=== PATIENT | female | born 1975 | race Caucasian/White ===

== ENCOUNTER 2017-06-10 12:48 | Emergency (ER) | payer BC, OTHER ==
[~2017-06-10] VITALS: Ht 162.6 cm; Wt 54.0 kg
[2017-06-10] MEDS ORDERED: NS IV 1000 ML 1,000 ML IV ONE (13:10)
[2017-06-10] MEDS ORDERED: KETOROLAC 30 MG/ML VIAL IVP ONE (13:15)
[2017-06-10 13:30] LABS: BASOPHILS % (AUTO) 0 % (0-10); EOSINOPHILS # (AUTO) 0.2 10^3/uL (0.0-0.3); EOSINOPHILS % (AUTO) 2 % (0-10); LYMPHOCYTES # (AUTO) 2.4 X 10^3 (1.0-4.0); LYMPHOCYTES % (AUTO) 26 % (12-44); MEAN CORPUSCULAR HEMOGLOBIN 30 PG (25-34); MEAN CORPUSCULAR HGB CONC 35 G/DL (32-36); MEAN CORPUSCULAR VOLUME 87 FL (80-99); MEAN PLATELET VOLUME 8.7 FL (7.4-10.4); MONOCYTES # (AUTO) 0.8 X 10^3 (0.0-1.0); MONOCYTES % (AUTO) 9 % (0-12); NEUTROPHILS # (AUTO) 5.9 X 10^3 (1.8-7.8); NEUTROPHILS % (AUTO) 63 % (42-75); PLATELET COUNT 239 10^3/uL (130-400); RED BLOOD COUNT 4.84 10^6/uL (4.35-5.85); RED CELL DISTRIBUTION WIDTH 13.2 % (10.0-14.5); WHITE BLOOD COUNT 9.3 10^3/uL (4.3-11.0)
--- NOTE | 2017-06-10 13:44 | ED General ---
General Chief Complaint: General Problems/Pain Stated Complaint: STREP THROAT/CONFUSION Nursing Triage Note: PT SENT TO ED FROM [facility] WITH C/O MIGRAINE, BODY ACHES AND CONFUSION. PT REPORTS SHE WAS DX WITH STREP ON 06/06/17 AND HAS BEEN TAKING AUGMENTIN. Nursing Sepsis Screen: No Definite Risk Source of Information: Patient, Family Exam Limitations: No Limitations History of Present Illness Time Seen by Provider: 12:55 Initial Comments This 41-year-old woman presents to the emergency room with altered mental status and lethargy. She was referred to the emergency room from an urgent care clinic. She reportedly was diagnosed with strep pharyngitis on June 06. She was given an injection and prescribed Augmentin. She has had diarrhea since that time. She is alert and oriented but mentation is sluggish and she appears lethargic. She denies taking any pain medications. She reports intense headache. Vital signs are stable and normal on arrival. Oropharynx appears very dry. Allergies and Home Medications Allergies Coded Allergies: No Known Drug Allergies (Unverified , 06/10/17) Constitutional: see HPI EENTM: see HPI Respiratory: no symptoms reported Cardiovascular: no symptoms reported Gastrointestinal: see HPI Genitourinary: no symptoms reported Musculoskeletal: no symptoms reported Skin: no symptoms reported Psychiatric/Neurological: See HPI Hematologic/Lymphatic: No Symptoms Reported Past [id number]-[id number] Hx Patient Social History Alcohol Use: Denies Use Recreational Drug Use: No Smoking Status: Never a Smoker 2nd Hand Smoke Exposure: No Recent Foreign Travel: No Contact w/Someone Who Travel: No Recent Infectious Disease Expo: No Recent Hopitalizations: No Physical Abuse: No Sexual Abuse: No Seasonal Allergies Seasonal Allergies: No Surgeries History of Surgeries: Yes Surgeries: Appendectomy, Hysterectomy (sparing the ovaries) Respiratory History of Respiratory Disorde: No Cardiovascular History of Cardiac Disorders: No Neurological History of Neurological Disord: No Reproductive System : No [employer] History: Hysterectomy Genitourinary History of Genitourinary Disor: No Gastrointestinal History of Gastrointestinal Di: No Musculoskeletal History of Musculoskeletal Dis: No Endocrine History of Endocrine Disorders: No HEENT History of HEENT Disorders: No Cancer History of Cancer: No Psychosocial History of Psychiatric Problem: Yes Behavioral Health Disorders: Anxiety Suicide Risk Score: 0 Integumentary History of Skin or Integumenta: No Physical Exam Vital Signs Vital Sign - Last 12Hours 06/10/17 13:06 Temp 97.3 Pulse 79 Resp 12 B/P (MAP) 113/83 Pulse Ox 100 O2 Delivery Room Air Capillary Refill : Less Than 3 Seconds General Appearance: No Apparent Distress, WD/WN, Thin HEENT: PERRL/EOMI, TMs Normal, Normal ENT Inspection, Other (oropharynx very dry. 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, Other (mood depressed, mentation sluggish but alert and oriented.) Skin: Normal Color, Warm/Dry Progress/Results/Core Measures Suspected Sepsis Recent Fever Within 48 Hours: No Infection Criteria Present: None New/Unexplained Altered Menta: No Sepsis Screen: No Definite Risk Sepsis Diagnosis: SIRS Temperature:97.3 Pulse: 79 Respiratory Rate: 12 Laboratory Tests 06/10/17 13:20: White Blood Count 9.3 Blood Pressure 113 /83 Mean: 93 Laboratory Tests 06/10/17 13:20: Creatinine 0.79, Platelet Count 239, Total Bilirubin 0.3 Results/Orders Lab Results Laboratory Tests Test 06/10/17 13:15 06/10/17 13:20 Range/Units Group A Streptococcus Screen NEGATIVE NEGATIVE White Blood Count 9.3 4.3-11.0 10^3/uL Red Blood Count 4.84 4.35-5.85 10^6/uL Hemoglobin 14.6 11.5-16.0 G/DL Hematocrit 42 35-52 % Mean Corpuscular Volume 87 80-99 FL Mean Corpuscular Hemoglobin 30 25-34 PG Mean Corpuscular Hemoglobin Concent 35 32-36 G/DL Red Cell Distribution Width 13.2 10.0-14.5 % Platelet Count 239 130-400 10^3/uL Mean Platelet Volume 8.7 7.4-10.4 FL Neutrophils (%) (Auto) 63 42-75 % Lymphocytes (%) (Auto) 26 12-44 % Monocytes (%) (Auto) 9 0-12 % Eosinophils (%) (Auto) 2 0-10 % Basophils (%) (Auto) 0 0-10 % Neutrophils # (Auto) 5.9 1.8-7.8 X 10^3 Lymphocytes # (Auto) 2.4 1.0-4.0 X 10^3 Monocytes # (Auto) 0.8 0.0-1.0 X 10^3 Eosinophils # (Auto) 0.2 0.0-0.3 10^3/uL Basophils # (Auto) 0.0 0.0-0.1 10^3/uL Sodium Level 141 135-145 MMOL/L Potassium Level 3.7 3.6-5.0 MMOL/L Chloride Level 113 H 98-107 MMOL/L Carbon Dioxide Level 19 L 21-32 MMOL/L Anion Gap 9 5-14 MMOL/L Blood Urea Nitrogen 7 7-18 MG/DL Creatinine 0.79 0.60-1.30 MG/DL Estimat Glomerular Filtration Rate > 60 BUN/Creatinine Ratio 9 Glucose Level 71 70-105 MG/DL Calcium Level 8.8 8.5-10.1 MG/DL Magnesium Level 2.0 1.8-2.4 MG/DL Total Bilirubin 0.3 0.1-1.0 MG/DL Aspartate Amino Transf (AST/SGOT) 29 5-34 U/L Alanine Aminotransferase (ALT/SGPT) 56 H 0-55 U/L Alkaline Phosphatase 69 40-136 U/L C-Reactive Protein High Sensitivity 0.09 0.00-0.50 MG/DL Total Protein 6.5 6.4-8.2 GM/DL Albumin 3.9 3.2-4.5 GM/DL My Orders Orders - LINDA RESENDIZ MD Cbc With Automated Diff (06/10/17 13:10) Comprehensive Metabolic Panel (06/10/17 13:10) Hs C Reactive Protein (06/10/17 13:10) Magnesium (06/10/17 13:10) Rapid Strep A Screen (06/10/17 13:10) Ua Culture If Indicated (06/10/17 13:10) Saline Lock/Iv-Start (06/10/17 13:10) Ketorolac Injection (Toradol Injection) (06/10/17 13:15) Ns Iv 1000 Ml (Sodium Chloride 0.9%) (06/10/17 13:10) Medications Given in ED Current Medications Medications Dose Ordered Sig/Nicolette Route Start Time Stop Time Status Last Admin Dose Admin Ketorolac Tromethamine 30 mg ONCE ONCE IVP 06/10/17 13:15 06/10/17 13:16 DC 06/10/17 13:20 30 MG Sodium Chloride 1,000 ml @ 0 mls/hr Q0M ONCE IV 06/10/17 13:10 06/10/17 13:11 DC 06/10/17 13:20 0 MLS/HR Vital Signs/I&O Vital Sign - Last 12Hours 06/10/17 13:06 Temp 97.3 Pulse 79 Resp 12 B/P (MAP) 113/83 Pulse Ox 100 O2 Delivery Room Air Capillary Refill : Less Than 3 Seconds Blood Pressure Mean: 93 Progress Note : Time: 14:10 Progress Note Patient feels much better after receiving IV fluids and Toradol. Headache is pretty well gone and she is much more alert and talkative. She feels ready to return home. I advised changing from Augmentin to plain amoxicillin and taking a probiotic. Levsin will be prescribed for any further diarrhea or abdominal cramping. Departure Impression Impression: Primary Impression: Acute headache Qualified Codes: R51 - Headache Additional Impressions: Hypovolemia Altered mental status Qualified Codes: R41.82 - Altered mental status, unspecified Pharyngitis Qualified Codes: J02.9 - Acute pharyngitis, unspecified Disposition: 01 HOME, SELF-CARE Condition: Improved Departure-Patient Inst. Referrals: NO,LOCAL PHYSICIAN (PCP/Family) Primary Care Physician Patient Instructions: Headache, Adult Add. Discharge Instructions: Drink plenty of clear liquids. Change from Augmentin to amoxicillin as prescribed. Use Levsin (hyoscyamine) dissolved under the tongue every 4 hours as needed for abdominal cramping and diarrhea. Gradually advance your diet with small quantities of bland food as tolerated. Return to the emergency room if symptoms worsen. Take probiotics such as Culturelle 3 times daily with meals until diarrhea resolves. For headache you may take ibuprofen up to 400 mg every 6 hours as needed. Add Tylenol (acetaminophen) up to 650 mg every 6 hours as needed for additional pain relief. All discharge instructions reviewed with patient and/or family. Voiced understanding. Scripts Amoxicillin (Amoxicillin) 500 Mg Capsule 1000 MG PO BID, #20 CAP Prov: BRUEGGEMANN,LINDA T MD 06/10/17 Hyoscyamine Sulfate (Levsin-Sl) 0.125 Mg Tab.subl 0.125 MG SL Q4H, #10 TAB Prov: LINDA RESENDIZ MD 06/10/17 LINDA RESENDIZ MD Jun 10, 2017 13:44
[2017-06-10 13:49] LABS: ALANINE AMINOTRANSFERASE 56 U/L (0-55); ALBUMIN 3.9 GM/DL (3.2-4.5); ANION GAP 9 MMOL/L (5-14); ASPARTATE AMINO TRANSFERASE 29 U/L (5-34); BILIRUBIN,TOTAL 0.3 MG/DL (0.1-1.0); BLOOD UREA NITROGEN 7 MG/DL (7-18); BUN/CREATININE RATIO 9; CALCIUM 8.8 MG/DL (8.5-10.1); CARBON DIOXIDE 19 MMOL/L (21-32); CHLORIDE 113 MMOL/L (98-107); CREATININE SERUM 0.79 MG/DL (0.60-1.30); GFR ESTIMATED > 60; GLUCOSE 71 MG/DL (70-105); POTASSIUM 3.7 MMOL/L (3.6-5.0); SODIUM 141 MMOL/L (135-145); TOTAL PROTEIN 6.5 GM/DL (6.4-8.2); hs C REACTIVE PROTEIN 0.09 MG/DL (0.00-0.50)
[2017-06-10] MEDS ORDERED: AMOX500C2 PO (14:17)
[2017-06-10] MEDS ORDERED: HYOS0.1283 SL (14:17)
[2017-06-10 14:25] VITALS: BP 113/83
== END 2017-06-10 14:25 | disposition home or self-care (01) ==
LOC: EDUNIT# 12:48 → ER 12:52
DX: R53.83 Other fatigue (principal); J02.0 Streptococcal pharyngitis; R41.82 Altered mental status, unspecified; R51 Headache; F41.9 Anxiety disorder, unspecified; Z90.49 Acquired absence of other specified parts of digestive tract; Z90.710 Acquired absence of both cervix and uterus
CPT/HCPCS: 36415; 80053; 83735; 85025; 86141; 87430